=== PATIENT | male | born 1965 | race Hispanic/Latino ===

== ENCOUNTER 2016-09-05 08:28 | Day surgery (SDC) | payer BC ==
[2016-09-05] MEDS ORDERED: Lactated Ringer's 500 ML IV ONE (10:28)
[2016-09-05 10:30] VITALS: RESP 13
[2016-09-05] MEDS ORDERED: Propofol 10 mg/ml Inj (20 ML) ONE (11:34)
[2016-09-05 12:20] VITALS: BP 102/75; PULSE 61; TEMP 98; O2SAT 97
== END 2016-09-05 12:21 | disposition home or self-care (01) ==
LOC: H.ENDO 08:28
PROVIDERS: ATTEND Internal Medicine Gastroenterology
DX: Z12.11 Encounter for screening for malignant neoplasm of colon (principal); K57.30 Diverticulosis of large intestine without perforation or abscess without bleeding; K64.0 First degree hemorrhoids
CPT/HCPCS: 45378; J2704; J7120